=== PATIENT | male | born 1960 | race Caucasian/White ===

== ENCOUNTER 2018-06-23 07:30 | Inpatient (IN) | payer OTHER ==
[~2018-06-23] VITALS: Ht 190.5 cm; Wt 115.8 kg
[2018-08-22] MEDS ORDERED: ATORVASTATIN CA10 MG ORAL (12:10)
[2018-08-22] MEDS ORDERED: PRILOSEC OTC20 MG ORAL (12:11)
[2018-08-22] MEDS ORDERED: SYMBICORT 80-10.2 G1 IH (12:12)
[2018-08-22] MEDS ORDERED: DYMISTA NASAL S23 GM NS (12:12)
[2018-08-23] VITALS (13 sets, daily range): BP systolic 129–143; BP diastolic 70–85
[2018-08-23] MEDS ORDERED: Propofol 1,000mg/ 100ml btl IV ONE (07:00)
[2018-08-23] MEDS ORDERED: fentaNYL 100 mcg/2 mL IV ONE (07:11)
[2018-08-23] MEDS ORDERED: Midazolam 2mg/2ml Inj ONE (07:11)
[2018-08-23] MEDS ORDERED: Lidocaine 1% MPF 10mg/ml 5ml ONE (07:12)
[2018-08-23] MEDS ORDERED: Propofol 200mg/20ml IV ONE ×3 (07:12→10:15)
[2018-08-23] MEDS ORDERED: Sodium Chloride 10ml vial INJ ONE (07:12)
[2018-08-23] MEDS ORDERED: Vancomycin 1gm inj IVPB ONE (07:16)
[2018-08-23] MEDS ORDERED: Thrombin 5000 units TOPIC ONE ×3 (07:17→09:09)
[2018-08-23] MEDS ORDERED: Gelfoam Size TOPIC ONE ×2 (07:17→09:09)
[2018-08-23] MEDS ORDERED: Bupivacaine w/Epi 0.5% 30ml Vial INJ ONE (07:17)
[2018-08-23] MEDS ORDERED: Bacitracin 50000 Units Vial ONE ×2 (07:18→09:41)
[2018-08-23] MEDS ORDERED: NS Irrig 1000ml ONE (07:30)
[2018-08-23] MEDS ORDERED: Sterile Water Irrig 1000ml IRRIG ONE (07:30)
[2018-08-23] MEDS ORDERED: LR 1000ml ONE (07:30)
--- NOTE | 2018-08-23 07:30 | Pre-Procedure Note/Attestation ---
Pre-Procedure Note/Attestation Complete Prior to Procedure Planned Procedure: not applicable Procedure Narrative: L5-S1 ALIF Indications for Procedure Pre-Operative Diagnosis: Rotational misalignement L5/ pars frx Attestation I attest that I discussed the nature of the procedure; its benefits; risks and complications; and alternatives (and the risks and benefits of such alternatives ), prior to the procedure, with the patient (or the patient's legal motor vehicle field representative). I attest that, if there was a reasonable possibility of needing a blood transfusion, the patient (or the patient's legal motor vehicle field representative) was given the [facility] standardized written summary, pursuant to the Preston Kyung Blood Safety Act ([place] Health and Safety Code # 1645, as amended). I attest that I re-evaluated the patient just prior to the surgery and that there has been no change in the patient's H&P, except as documented below: LINDSAY LU Aug 23, 2018 07:30
[2018-08-23] MEDS ORDERED: Albuterol 90mcg Inhaler 8gm INH ONE (07:32)
[2018-08-23] MEDS ORDERED: Zemuron 50mg/5ml Inj IV ONE (07:33)
[2018-08-23] MEDS ORDERED: Heparin 5000 units/ml inj ONE (07:38)
[2018-08-23] MEDS ORDERED: ePHEDrine 50mg/ml Inj ONE (07:48)
[2018-08-23] MEDS ORDERED: LR 1000ml 1,000 ML IVLG SCH (09:00)
[2018-08-23] MEDS ORDERED: LORazepam Inj 2mg/ml 1ml IV PRN (09:00)
[2018-08-23] MEDS ORDERED: HYDROmorphone 1mg/ml Carpuject IVP PRN (09:00)
[2018-08-23] MEDS ORDERED: Meperidine 50mg/ml Inj(FOR RIGORS ONLY) IVP PRN (09:00)
[2018-08-23] MEDS ORDERED: DiphenhydrAMINE 50mg/ml Inj IVP PRN (09:00)
[2018-08-23] MEDS ORDERED: Thrombin 5000 units spray kit TOPIC ONE (09:09)
--- NOTE | 2018-08-23 09:29 | Anethesia Preoperative Eval ---
Anesthesia Pre-op PMH/ROS General Date of Evaluation: Aug 23, 2018 Time of Evaluation: 07:25 Anesthesiologist: Ashley ASA Score: ASA 2 Mallampati Score Class I : Soft palate, uvula, fauces, pillars visible Class II: Soft palate, uvula, fauces visible Class III: Soft palate, base of uvula visible Class IV: Only hard plate visible Mallampati Classification: Class III Surgeon: Estephania Diagnosis: Pain Surgical Procedure: L5-S1 ALIF Anesthesia History: PONV Family History: no anesthesia problems Allergies: Coded Allergies: No Known Allergies (Unverified , 08/23/18) Medications: see eMAR Patient NPO?: Yes NPO Date: Aug 22, 2018 NPO Time: 20:00 Past Medical History Cardiovascular: Reports: arrhythmia - Bradycardia; Denies: HTN, CAD, DE, valve dz, other Pulmonary: Reports: asthma; Denies: COPD, ARIELLE, other Gastrointestinal/Genitourinary: Denies: GERD, CRI, ESRD, other Neurologic/Psychiatric: Denies: dementia, CVA, depression/anxiety, TIA, other Endocrine: Denies: DM, hypothyroidism, steroids, other HEENT: Denies: cataract (L), cataract (R), glaucoma, [place] (L), [place] (R), other Hematology/Immune: Denies: anemia, DVT, bleeding disorder, other Musculoskeletal/Integumentary: Denies: OA, RA, DJD, DDD, edema, other PMH Narrative: Asthma, moderate obesity, bradycardia PSxH Narrative: Achilles X2, mandible surgery, amputation of right 5th finger Anesthesia Pre-op Phys. Exam Physician Exam Last Vital Signs Date Time Temp Pulse Resp B/P (MAP) Pulse Ox O2 Delivery O2 Flow Rate FiO2 08/23/18 07:10 97.6 50 18 143/83 (103) 97 97.6 08/23/18 07:09 Room Air Constitutional: NAD Neurologic: CN 2-12 intact Cardiovascular: RRR, no M/R/G Respiratory: CTA Gastrointestinal: S/NT/ND Airway Exam Mallampati Score: Class III MO: full ROM: full Teeth: other - Upper front crowns Anesthesia Pre-op A/P Labs WNL Studies Pre-op Studies: EKG - Sinus luiz Risk Assessment & Plan Assessment: Healthy asthmatic with h/o refractory N/V post op. Plan: GETA, TIVA, antiemetics X2 Status Change Before Surgery: No Pre-Antibiotics Drug: Ancef 2 Grams Given Within 1 Hr of Incision: Yes Time Given: 07:45 Preston Ramirez MD Aug 23, 2018 09:29
--- NOTE | 2018-08-23 09:30 | Immediate Post-Op Evaluation ---
Immediate Post-Op Evalulation Immediate Post-Op Evalulation Procedure: ALIF L5-S1 Date of Evaluation: Aug 23, 2018 Time of Evaluation: 11:03 IV Fluids: 1100 Estimated Blood Loss: 200 Urinary Output: 300 Blood Pressure Systolic: 139 Blood Pressure Diastolic: 85 Pulse Rate: 81 Respiratory Rate: 18 O2 Sat by Pulse Oximetry: 100 Temperature (Fahrenheit): 97.1 Pain Score (1-10): 1 Nausea: No Vomiting: No Complications No complication Patient Status: awake, patent, extubated, none Hydration Status: adequate Drug: Ancef 2 Grams Given Within 1 Hr of Incision: Yes Time Given: 07:45 Preston Ramirez MD Aug 23, 2018 09:30
--- NOTE | 2018-08-23 11:00 | Brief Operative Note ---
Immediate Post Operative Note Operative Note Chief Complaint: LBP Pre-op Diagnosis: Rotational misalignement L5/ pars frx Procedure: L5-S1 ALIF Post-op Diagnosis: Same Post-op Diagnosis: same as pre-op Findings: consistent w/pre-op dx studies Surgeon: Radha Lu Wharf Tender Helper: Modesta Patel Additional Surgeons: Shyanne Ventura Anesthesiologist: Blair Anesthesia: general Specimen: yes - disc Complications: none Condition: stable Fluids: See Anesthesia records Estimated Blood Loss: volume - 150 Drains: none Implant(s) used?: Yes - Nuvasive cage and screws and BMP and Putty LINDSAY LU Aug 23, 2018 11:00
--- NOTE | 2018-08-23 12:18 | Diagnostic Imaging Report ---
Indication: Intraoperative imaging Comparison: None Findings: 3 fluoroscopic views of the lumbar spine were obtained. Intraoperative imaging showing localization followed by anterior fusion of L5-S1. IMPRESSION: Intraoperative imaging
[2018-08-23] MEDS: Hydromorphone 0.5mg/0.5ml inj IVP PRN ×3 (13:47→19:59)
[2018-08-23] MEDS ORDERED: NS w/KCl 20mEq 1,000 ML IV SCH (14:00)
[2018-08-23] MEDS: ceFAZolin sod 1 GM in D5W 55 ML IV SCH ×2 (15:17→23:18)
[2018-08-23] MEDS: Docusate 100mg cap ORAL SCH (17:31)
[2018-08-23] MEDS ORDERED: Chloraseptic Spray 20mL Bottle ORAL ONE (20:07)
[2018-08-23] MEDS ORDERED: Albuterol ud Inhalation HHN PRN (20:15)
[2018-08-23] MEDS: Chloraseptic Spray 20mL Bottle ORAL PRN (21:13)
[2018-08-23] MEDS ORDERED: HYDROcodone/Acetamin 10/325 tab ORAL PRN ×2 (21:30→21:35)
[2018-08-23] MEDS ORDERED: TransDerm Scop 1mg/72HR Patch TDERMAL SCH (21:30)
[2018-08-23] MEDS ORDERED: Tamsulosin 0.4mg cap ORAL SCH (21:34)
[2018-08-23] MEDS ORDERED: LORazepam 0.5mg tab ORAL PRN (21:36)
[2018-08-23] MEDS: NS w/KCl 20mEq 1,000 ML IV SCH (22:29)
[2018-08-23] MEDS: AZELASTINE NASAL SCH (23:18)
[2018-08-23] MEDS: FLUTICASONE NASAL SCH (23:18)
[2018-08-24 00:31] VITALS: BP 133/74
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
[2018-08-24] MEDS: Chloraseptic Spray 20mL Bottle ORAL PRN ×3 (02:57→18:18)
[2018-08-24] MEDS: HYDROmorphone 1mg/ml Carpuject SUBQ PRN ×2 (02:58→08:38)
[2018-08-24 04:00] VITALS: BP 105/56
[2018-08-24] MEDS: ceFAZolin sod 1 GM in D5W 55 ML IV SCH (06:56)
[2018-08-24] MEDS: NS w/KCl 20mEq 1,000 ML IV SCH ×3 (06:56→20:22)
[2018-08-24 08:00] VITALS: BP 113/53
--- NOTE | 2018-08-24 08:09 | 48 Hour Post Anesthesia Eval ---
Post Anesthesia Evaluation Procedure: ALIF L5-S1 Date of Evaluation: Aug 24, 2018 Time of Evaluation: 08:08 Blood Pressure Systolic: 124 0: 76 Pulse Rate: 68 Respiratory Rate: 18 Temperature (Fahrenheit): 97.6 O2 Sat by Pulse Oximetry: 98 Airway: patent Nausea: No Vomiting: No Pain Intensity: 3 Hydration Status: adequate Cardiopulmonary Status: stable Mental Status/LOC: patient returned to baseline Follow-up Care/Observations: n/a Post-Anesthesia Complications: none Follow-up care needed: N/A Allen Corral MD Aug 24, 2018 08:09
[2018-08-24] MEDS: Advair 250/50 Inhaler - 14 dose INH SCH ×2 (08:14→18:45)
[2018-08-24] MEDS: Docusate 100mg cap ORAL SCH ×2 (08:36→17:15)
[2018-08-24] MEDS: FLUTICASONE NASAL SCH ×2 (08:36→18:17)
[2018-08-24] MEDS: AZELASTINE NASAL SCH ×2 (08:36→18:17)
[2018-08-24] MEDS ORDERED: Flonase Nasal Inhaler 16gm NASAL SCH (09:00)
[2018-08-24 12:00] VITALS: BP 118/61
[2018-08-24] MEDS ORDERED: Tubing IV Secondary IV ONE (13:40)
[2018-08-24] MEDS ORDERED: Sodium Chloride 500ML 550 ML IV ONE (13:43)
[2018-08-24] MEDS: Hydromorphone 0.5mg/0.5ml inj SUBQ PRN ×2 (15:11→20:54)
[2018-08-24 16:00] VITALS: BP 114/66
[2018-08-24] MEDS: HYDROcodone/Acetamin 10/325 tab ORAL PRN (17:16)
[2018-08-24 20:00] VITALS: BP 115/70
--- NOTE | 2018-08-24 20:00 | Progress Note ---
DATE: 08/24/2018 ACUTE PAIN MANAGEMENT PHYSICIAN PROGRESS NOTE. OBJECTIVE: VITAL SIGNS: Afebrile, pulse 66, respirations 18, blood pressure 118/61, oxygen saturation 96% on room air. LABORATORY STUDIES: No interval laboratory studies. MEDICATIONS: Medication administration record reviewed. Medications include IV fluids, Colace, Lipitor, Flomax, Advair, Symbicort. P.r.n. medications include Fioricet, [place], Ativan, Soma, Phenergan, Proventil, Catapres, Mylanta, Chloraseptic spray, Benadryl, subcutaneous Dilaudid, Zofran, and scheduled at bedtime Protonix. I spent over 60 minutes in consultation today. I saw the patient at bedside with the nurse RN, Divina. I discussed the case with the hospital pharmacist, Emiliano. Also spoke with the surgeon, Dr. Best in-detail. I spoke with the physical therapist, John who found the patient to be quite motivated. However when the patient was moved from the sitting to the standing position, the patient does have significant dizziness and was unable to progress well with ambulation. I will bolus the patient with a 0.5 liter of normal saline over the next 30 minutes and then we will retrial an ambulation exercise to see the patient can make progress. We would hope that the patient can start ambulating aggressively so we can help accelerate his bowel function return. He remains without any flatus after his ALIF anterior lumbar spine fusion surgery procedure. The patient is burping so hopefully the flatus will occur soon. The patient is not taking much pain medications. He used subcutaneous Dilaudid 1 mg dose earlier today. I wonder if this dose was too strong; therefore, I decrease the dose 0.5 mg. I will continue the subcutaneous route as the patient's nausea symptoms have improved after we discontinued the intravenous route from the parenteral narcotics. The scopolamine patch is in place. I do have Phenergan and Zofran available as a rescue antiemetics. The patient is neurologically intact. Moving all extremities x4. The patient denies any shortness of breath. He is back on his normal asthma inhalers. He does have albuterol nebulizer treatments available on a p.r.n. basis. Currently the patient states that he feels comfortable breathing. He is reaching over 2500 mL with his incentive spirometer and has been quite compliant using the breathing exercise machine. The patient has sequential compression pneumatic devices in place for DVT prophylaxis. I have started the patient on Flomax to help avoid any urinary retention issues. the patient will not be discharging home today due to his lack of bowel function return. I will remove the Dean catheter tomorrow morning. We will see how the patient advances with physical therapy training and his GI function. Once he passes flatus, we will start him on a clear liquids with hopes to discharge him in the next 36 hours. Duke Munoz M.D. DR: Emilee JOB#: [id number] CC:
[2018-08-24] MEDS: Tamsulosin 0.4mg cap ORAL SCH (20:54)
[2018-08-25] VITALS: BP 118/73
[2018-08-25] MEDS: NS w/KCl 20mEq 1,000 ML IV SCH (03:05)
[2018-08-25 04:26] VITALS: BP 123/70
[2018-08-25] MEDS: Chloraseptic Spray 20mL Bottle ORAL PRN (06:18)
[2018-08-25] MEDS ORDERED: Chloraseptic Spray 20mL Bottle ORAL ONE (07:32)
[2018-08-25 08:00] VITALS: BP 132/77
[2018-08-25] MEDS ORDERED: NS w/KCl 20mEq 1,000 ML IV SCH (08:00)
[2018-08-25] MEDS ORDERED: Chloraseptic Spray 20mL Bottle ORAL PRN (08:10)
[2018-08-25] MEDS: AZELASTINE NASAL SCH ×2 (08:13→17:21)
[2018-08-25] MEDS: Docusate 100mg cap ORAL SCH ×2 (08:13→17:21)
[2018-08-25] MEDS: HYDROcodone/Acetamin 10/325 tab ORAL PRN (08:13)
[2018-08-25] MEDS: FLUTICASONE NASAL SCH ×2 (08:13→17:21)
[2018-08-25] MEDS: Advair 250/50 Inhaler - 14 dose INH SCH ×2 (08:49→19:15)
[2018-08-25] MEDS: Sennosides 8.6mg ORAL SCH (11:39)
[2018-08-25 12:00] VITALS: BP 131/72
--- NOTE | 2018-08-25 14:00 | Progress Note ---
DATE: 08/25/2018 ACUTE PAIN MANAGEMENT PHYSICIAN PROGRESS NOTE MEDICATIONS: Medication administration record reviewed. Medications include IV fluids, Colace, Lipitor, Flomax, Advair, Symbicort, and Protonix. P.r.n. medications include Zofran, Dilaudid, Benadryl, Chloraseptic spray, Mylanta, Catapres, Proventil, Phenergan, Soma, Ativan, Fioricet, [place]. VITAL SIGNS: Within normal limits. Afebrile, pulse 73, respirations 17, blood pressure 123/70, oxygen saturation 93%. LABORATORY STUDIES: No interval laboratory studies. I saw the patient at the bedside with the charge nurse, Gabo CHARLES. I discussed the case with the surgeon, Dr. Best, along with physical therapist and the orthopedic floor nurse, MELVIN Garza. I spent over 60 minutes in consultation today. I left a prescription for [place] and Fioricet pills and asked the nursing team to try to have the outpatient pharmacy dispense the medications for the patient. The patient lives at home with his in [place]. I have offered to try to interpret many of the patient's medications which he has at home if his can photograph the bottles and send a photo through their cellphone. The has not yet taken this picture. The patient did tolerate [place]berry pills for dinner last night without any adverse side effects. I will continue the p.r.n. [place] along with breakthrough doses of Soma and Dilaudid for analgesia. The patient continued to have headaches. He had coffee this morning. I then went ahead and started him on clear-liquid diet despite convincing evidence for positive flatus. The patient thinks he might have passed gas some, but he is not certain. The patient did tolerate clear-liquid diet with coffee without any adverse side effects or nausea. The patient denies abdominal bloating. I will continue the Fioricet tablets for headache symptoms. The patient has been using Fioricet preoperatively for increasing headache complaints. The patient still has some sore throat complaints. The patient's nausea symptoms seemed to have improved. The scopolamine patch remains in place. Rescue antiemetics also remain available including Phenergan and Zofran. For the patient's history of asthma, he denies any shortness of breath or chest pain. Yesterday, the patient was unable to ambulate far due to dizziness and lightheadedness. This morning, he is able to move out of bed to chair by himself. A front-wheeled walker remains at the bedside and the patient also has a lumbar spine brace which he bought on recommendations from Dr. Best preoperatively. Due to the patient's slow recovery after his abdominal surgery ALIF, we will continue supportive care. We will continue to advance his ambulation with physical therapy as tolerated. Additionally, the patient has multiple stairs at home and I have asked Physical Therapy to work with stairs-training. I will continue clear liquids only for now for his diet, however, I will discontinue the IV fluid rate to 50 mL/hour since he has tolerated liquid diet. Incentive spirometer remains at the bedside to encourage good pulmonary toilet. Sequential compression devices will continue for DVT prophylaxis. Duke Munoz M.D. DR: Connie JOB#: [id number] CC:
[2018-08-25 16:00] VITALS: BP 134/81
[2018-08-25 20:00] VITALS: BP 119/72
[2018-08-25] MEDS: Tamsulosin 0.4mg cap ORAL SCH (20:48)
[2018-08-26] MEDS: HYDROcodone/Acetamin 10/325 tab ORAL PRN (03:00)
[2018-08-26 04:00] VITALS: BP 127/77
--- NOTE | 2018-08-26 06:00 | Progress Note ---
DATE: 08/26/2018 ACUTE PAIN MANAGEMENT PHYSICIAN PROGRESS NOTE MEDICATIONS: Medication administration record reviewed. Medications include Colace, Lipitor, Flomax, Advair, Senokot, and Protonix. As needed medications include Zofran, Dilaudid, Benadryl, Mylanta, Catapres, Proventil, Soma, Ativan, Fioricet, [place], and Chloraseptic spray. LABORATORY STUDIES: No interval laboratory studies. OBJECTIVE: VITAL SIGNS: Within normal limits. Afebrile, pulse 87, respirations 20, blood pressure 127/77, and oxygen saturation 98%. I spent over 60 minutes in consultation today. I discussed the case with the surgeon, Dr. Best along with the nurse RN, Yu. Yesterday, the patient started passing flatus and we advanced his diet, which has been well tolerated. He tolerated clear liquids. He tolerated full liquids. He also tolerated soft diet for dinner. There was no nausea symptom. No emesis. We will advance regular diet this morning. I spoke with the hospital pharmacist, Prosper and added twice a day Colace and Senokot to help continue with bowel regularity. The patient is afebrile. He has been using his incentive spirometer with good efficacy. He has no fevers and has normal vital signs. The patient's ambulation continues to improve. The dizziness with standing has passed. The outpatient hospital pharmacy has been able to fill the patient's prescription for [place] and Fioricet, which I left. The patient's presumably will present later today to help obtaining the prescription with co-pay ____ from the outpatient pharmacy, and return the patient to their home near [place]. The patient has been moving in and out of bed with minimal assistance. If he continues to require a front wheel walker per physical therapy, one will be provided by the hospital. The abdominal wound is clean and dry and I see no contraindications for discharge trial home later today. The patient will follow up in the outpatient surgical clinic with Dr. Best for surgical followup. Duke Munoz M.D. DR: ROBI JOB#: [id number] CC:
--- NOTE | 2018-08-26 07:00 | Discharge Summary ---
DATE OF ADMISSION: 08/23/2018 DATE OF DISCHARGE: 08/26/2018 ATTENDING PHYSICIAN/SURGEON: Luiz Best M.D. CONSULTING PHYSICIAN: Duke Munoz M.D., Pain Management. ADMITTING DIAGNOSIS: Rotational misalignment, lumbar spine, L5 with pars fracture. POSTOPERATIVE DIAGNOSIS: Rotational misalignment, lumbar spine, L5 with pars fracture. HOSPITAL COURSE: The patient was admitted on 08/23/2018 for elective lumbar spine fusion surgery, ALIF, L5-S1. The patient underwent uneventful surgical procedure in the operating room and was transferred in stable condition to the recovery room. The patient did well in recovery and was transferred to the orthopedic floor without any complications. The patient had serial monitoring of vital signs and neurologic checks for three days in the hospital. He advanced his ambulation with physical therapy training. His diet was advanced without complications as his bowel function returned. Prescription was provided for [place] and Fioricet for outpatient usage. The patient is scheduled to discharge home to his on postoperative day #3 without complications. Duke Munoz M.D. DR: DORA JOB#: [id number] CC:
[2018-08-26 08:00] VITALS: BP 111/69
[2018-08-26] MEDS: Sennosides 8.6mg ORAL SCH (08:34)
[2018-08-26] MEDS: Docusate 100mg cap ORAL SCH (08:34)
[2018-08-26] MEDS: Advair 250/50 Inhaler - 14 dose INH SCH (08:57)
[2018-08-26] MEDS: FLUTICASONE NASAL SCH (09:13)
[2018-08-26] MEDS: AZELASTINE NASAL SCH (09:13)
[2018-08-26] MEDS ORDERED: NORCO 10-325 T1 EACH ORAL (10:02)
[2018-08-26] MEDS ORDERED: FIORICET1 EA ORAL (10:06)
[2018-08-26] MEDS ORDERED: NS 500ML ONE (11:44)
--- NOTE | 2018-08-27 01:15 | Operative Note - Dictated ---
DATE OF OPERATION: 08/23/2018 PREOPERATIVE DIAGNOSIS: Spine disease. POSTOPERATIVE DIAGNOSIS: Spine disease. PROCEDURE: 1. Anterior retroperitoneal exposure, interbody fusion, L5-S1. 2. Repair of left common iliac vein. 3. Ligation of the middle sacral vessels. 4. Mobilization of the left common iliac artery and vein. SURGEON: Brandt Ventura M.D. CO-SURGEON: Luiz Best M.D. ESTIMATED BLOOD LOSS: 150 mL. ANESTHESIA: General. OPERATIVE NOTE: Risks, benefits, complications, and alternatives were carefully discussed with the patient. Consent obtained. Risks and benefits have been explained to the patient included, but not limited to bleeding, infection, damage to lungs, damage to ureter, wound infection, wound dehiscence, DVT, PE, loss of limb, loss of life, and high-risk nature of the operation were fully explained and stressed to the patient. Ample time was given to the patient to ask questions. OPERATIVE TECHNIQUE: The patient was placed in supine position, and prepped and draped in usual sterile fashion. I made an 8 cm incision in the left lower quadrant in horizontal fashion. Incision was taken down to the subcutaneous tissue, which was opened using electrocautery. Left anterior rectus sheath was opened in the direction of the wound. Left rectus muscle was mobilized superiorly and inferiorly about 3 cm. At this time, I incised the posterior rectus sheath superiorly about 2 cm. Bookwalter retractor was placed retracting the bowel contents to the right and left rectus muscle to the left. I dissected the left common iliac artery and vein and external iliac artery and vein. The middle sacral vessels were ligated using titanium clips. The right common iliac artery and vein were dissected and retracted laterally using a Reese retractor. The left common iliac artery and vein was dissected. There was a small tear in the left common iliac vein, which was repaired using 6-0 Prolene in a figure-of-8 fashion. Exposure for L5-S1 was obtained between the right and left common iliac artery and vein using Reese retractors, electrocautery was not used on the bone or close to the blood vessels. We proceeded with diskectomy and placement of a new plate. Please refer to Dr. Best's dictation for the details of that operation. After all the x-rays were satisfactorily and read by Dr. Best, needle count and sponge count were correct. The wound was irrigated using antibiotic solution. Posterior rectus sheath was closed using a 0-Vicryl suture in a running fashion and the anterior rectus sheath was closed using a #1 Vicryl suture in a running fashion with interrupted sutures in the middle. The wound was irrigated again and closed in two layers of 2-0 Vicryl suture in running and subcuticular skin closure. The patient tolerated the procedure well. Brandt Ventura MD DR: SHEA JOB#: [id number] CC:
== END 2018-08-26 11:45 | disposition home or self-care (01) | DRG 460 ==
LOC: SDSOVERFLO 08-23 06:01 → 3E 08-23 12:39
PROC: 0SG30A0 Fusion of Lumbosacral Joint with Interbody Fusion Device, Anterior Approach, Anterior Column, Open Approach (ICD-10-PCS; principal; 2018-08-23 07:30)
PROC: 0ST40ZZ Resection of Lumbosacral Disc, Open Approach (ICD-10-PCS; principal; 2018-08-23 07:30)
DX: M47.26 Other spondylosis with radiculopathy, lumbar region (principal); M48.061 Spinal stenosis, lumbar region without neurogenic claudication; M43.8X6 Other specified deforming dorsopathies, lumbar region; V89.2XXS Person injured in unspecified motor-vehicle accident, traffic, sequela; G89.18 Other acute postprocedural pain; K21.9 Gastro-esophageal reflux disease without esophagitis; J45.909 Unspecified asthma, uncomplicated; E78.00 Pure hypercholesterolemia, unspecified; Z89.021 Acquired absence of right finger(s); R00.1 Bradycardia, unspecified; R42 Dizziness and giddiness
CPT/HCPCS: 36415; 72020; 76001; 86850; 86900; 86901; 86920; 87081; 94003; 94150; 94640; J2250; J2405